=== PATIENT | female | born 1940 | race African-American/Black ===

== ENCOUNTER 2018-04-24 16:42 | Inpatient (IN) ==
[2018-04-24] MEDS ORDERED: MORPHINE 4 MG/1 ML VIAL IV PRN (17:04)
[2018-04-24] MEDS ORDERED: ASPIRIN 325 MG TABLET PO STA (17:04)
[2018-04-24] MEDS ORDERED: ONDANSETRON 4 MG/2 ML VIAL IV PRN (17:04)
[2018-04-24 17:40] LABS: Basophils % 0.5 % (0.0-0.8); Eosinophils # 0.1 10*3/uL (0.0-0.87); Hematocrit 39.4 VOL% (35.7-47.0); Hemoglobin 12.8 GM/DL (12.0-16.0); Immature Granulocytes % 0.2 %; Immature Granulocytes Absolute 0.01 #; Lymphocytes # 1.6 10*3/uL (1.4-4.0); Lymphocytes % 29.4 % (21.3-54.2); Mean Corpuscular HGB Conc 32.5 GM/DL (32-36); Mean Corpuscular Hemoglobin 29 PG (27-34); Monocytes # 0.4 10*3/uL (0.11-0.8); Monocytes % 7.4 % (1.7-12.7); Neutrophils # 3.3 10*3/uL (1.4-7.4); Neutrophils % 60.5 % (38.7-73.9); Platelet Count 211 T/CUMM (130-400); Red Blood Count 4.38 MC/CUMM (3.8-5.5); Red Cell Distribution Width 13.9 % (9.3-17.3); White Blood Count 5.5 T/CUMM (4-12)
[2018-04-24 18:03] LABS: Apearance,Urine CLEAR (Clear); Bilirubin,Urine Negative (Negative); Blood, Urine Negative (Negative); Glucose,Urine (UA) Negative (Negative); Ketones,Urine Negative (Negative); Mucus,Urine Few /LPF (Occasional); Nitrite,Urine Negative (Negative); Protein,Urine Negative; RBC,Urine 7 /HPF (0-4); Squamous Epithelial Cell,Urine Occasional /HPF (0-10); Urine Color Yellow (Yellow); Urine Specific Gravity 1.019 (1.001-1.035); WBC,Urine 1 /HPF (0-6)
[2018-04-24 18:20] LABS: Albumin 3.1 G/DL (3.4-5.0); Bilirubin,Total 1.1 MG/DL (0.2-1.0); Calcium 9.1 MG/DL (8.5-10.1); Osmolality,Calculated 288.7 MOS/KG (273-304); Potassium 3.8 MMOL/L (3.5-5.1)
[2018-04-24 18:22] LABS: PT Patient Result 10.3 SECS; Partial Thromboplastin Time 26.6 SECS (0-40)
[2018-04-24] MEDS ORDERED: BISACODYL 5 MG TABLET PO PRN (18:30)
[2018-04-24] MEDS ORDERED: LACTULOSE 20 GM/30 ML UDCUP PO PRN (18:30)
[2018-04-24] MEDS ORDERED: ASPIRIN 325 MG TABLET PER TUBE STA (18:37)
[2018-04-24 19:36] LABS: Thyroid Stimulating Hormone 0.831 uIU/ml (0.358-3.74)
[2018-04-25 05:34] LABS: Basophils % 0.4 % (0.0-0.8); Eosinophils # 0.1 10*3/uL (0.0-0.87); Eosinophils % 2.5 % (0.00-10.9); Hematocrit 37.8 VOL% (35.7-47.0); Hemoglobin 12.2 GM/DL (12.0-16.0); Immature Granulocytes % 0.2 %; Immature Granulocytes Absolute 0.01 #; Lymphocytes # 1.7 10*3/uL (1.4-4.0); Lymphocytes % 32.8 % (21.3-54.2); Mean Corpuscular HGB Conc 32.3 GM/DL (32-36); Mean Corpuscular Hemoglobin 29 PG (27-34); Mean Corpuscular Volume 89.4 FL (87-102); Mean Platelet Volume 10.3 FL (9.6-12.0); Monocytes # 0.4 10*3/uL (0.11-0.8); Monocytes % 7.4 % (1.7-12.7); Neutrophils # 2.9 10*3/uL (1.4-7.4); Neutrophils % 56.7 % (38.7-73.9); Platelet Count 198 T/CUMM (130-400); Red Blood Count 4.23 MC/CUMM (3.8-5.5); Red Cell Distribution Width 14.2 % (9.3-17.3); White Blood Count 5.2 T/CUMM (4-12)
[2018-04-25 05:56] LABS: Bilirubin,Total 1.4 MG/DL (0.2-1.0); Osmolality,Calculated 288.7 MOS/KG (273-304); Potassium 3.5 MMOL/L (3.5-5.1); Total Protein 6.7 G/DL (6.4-8.3)
[2018-04-25 06:00] LABS: Risk Ratio 1.43; VLDL CHOLESTEROL 8.4 MG/DL
[2018-04-25] MEDS: LANSOPRAZOLE ODT 30 MG TABLET PEG SCH (09:05)
[2018-04-25] MEDS: hydrALAZINE 25 MG TABLET PO SCH ×2 (10:01→21:30)
[2018-04-26] MEDS ORDERED: CARVEDILOL 6.25 MG TABLET PEG SCH (09:00)
[2018-04-26] MEDS: hydrALAZINE 25 MG TABLET PO SCH (09:41)
[2018-04-26] MEDS: LANSOPRAZOLE ODT 30 MG TABLET PEG SCH (09:41)
[2018-04-26] MEDS ORDERED: SODIUM PHOSPHATE ENEMA 133 ML BOTTLE RECTAL ONE (11:00)
[2018-04-26] MEDS ORDERED: LABETALOL 20 MG/4 ML SYRINGE IV ONE (16:47)
[2018-04-26] MEDS ORDERED: LABETALOL 100 MG/20 ML VIAL IV ONE (17:30)
[2018-04-26] MEDS: CARVEDILOL 12.5 MG TABLET PEG SCH (22:03)
[2018-04-26] MEDS: POLYETHYLENE GLYCOL POWDER 17 GM PACK PEG SCH (22:03)
[2018-04-26] MEDS: DOCUSATE SODIUM 100 MG/10 ML UDCUP PEG SCH (22:07)
[2018-04-27 07:03] LABS: Basophils % 0.4 % (0.0-0.8); Eosinophils # 0.2 10*3/uL (0.0-0.87); Eosinophils % 2.1 % (0.00-10.9); Hematocrit 35.6 VOL% (35.7-47.0); Hemoglobin 11.6 GM/DL (12.0-16.0); Immature Granulocytes % 0.4 %; Immature Granulocytes Absolute 0.03 #; Lymphocytes # 1.7 10*3/uL (1.4-4.0); Lymphocytes % 21.3 % (21.3-54.2); Mean Corpuscular HGB Conc 32.6 GM/DL (32-36); Mean Corpuscular Hemoglobin 30 PG (27-34); Mean Corpuscular Volume 91.8 FL (87-102); Mean Platelet Volume 10.6 FL (9.6-12.0); Monocytes # 0.6 10*3/uL (0.11-0.8); Monocytes % 7.1 % (1.7-12.7); Neutrophils # 5.6 10*3/uL (1.4-7.4); Neutrophils % 68.7 % (38.7-73.9); Platelet Count 166 T/CUMM (130-400); Red Blood Count 3.88 MC/CUMM (3.8-5.5); Red Cell Distribution Width 14.2 % (9.3-17.3); White Blood Count 8.1 T/CUMM (4-12)
[2018-04-27 07:18] LABS: Calcium 8.6 MG/DL (8.5-10.1); Osmolality,Calculated 289.6 MOS/KG (273-304); Potassium 3.4 MMOL/L (3.5-5.1)
[2018-04-27] MEDS ORDERED: POTASSIUM CHLORIDE 20 MEQ TABLET PO ONE ×2 (08:18→12:00)
[2018-04-27] MEDS: POLYETHYLENE GLYCOL POWDER 17 GM PACK PEG SCH ×2 (08:52→20:54)
[2018-04-27] MEDS: CARVEDILOL 12.5 MG TABLET PEG SCH ×2 (08:52→20:54)
[2018-04-27] MEDS: LANSOPRAZOLE ODT 30 MG TABLET PEG SCH (08:52)
[2018-04-27] MEDS: DOCUSATE SODIUM 100 MG/10 ML UDCUP PEG SCH ×2 (08:52→20:54)
[2018-04-28 06:30] LABS: Calcium 8.7 MG/DL (8.5-10.1); Osmolality,Calculated 288.7 MOS/KG (273-304); Potassium 3.7 MMOL/L (3.5-5.1)
[2018-04-28] MEDS: POLYETHYLENE GLYCOL POWDER 17 GM PACK PEG SCH ×2 (08:47→21:02)
[2018-04-28] MEDS: LANSOPRAZOLE ODT 30 MG TABLET PEG SCH (08:47)
[2018-04-28] MEDS: CARVEDILOL 12.5 MG TABLET PEG SCH (08:47)
[2018-04-28] MEDS: DOCUSATE SODIUM 100 MG/10 ML UDCUP PEG SCH ×2 (08:47→21:02)
[2018-04-28] MEDS: CARVEDILOL 25 MG TABLET PEG SCH ×2 (09:03→21:03)
[2018-04-29] MEDS ORDERED: ETOMIDATE 20 MG/10 ML VIAL IV ONE (10:00)
[2018-04-29] MEDS ORDERED: PROPOFOL 200 MG/20 ML VIAL IV ONE (10:00)
[2018-04-29] MEDS ORDERED: LIDOCAINE 100 MG/5 ML SYRINGE ONE (10:00)
[2018-04-29] MEDS: DOCUSATE SODIUM 100 MG/10 ML UDCUP PEG SCH ×2 (14:32→21:05)
[2018-04-29] MEDS: POLYETHYLENE GLYCOL POWDER 17 GM PACK PEG SCH ×2 (14:32→21:05)
[2018-04-29] MEDS: CARVEDILOL 25 MG TABLET PEG SCH ×2 (14:33→21:05)
[2018-04-29] MEDS: LANSOPRAZOLE ODT 30 MG TABLET PEG SCH (14:33)
[2018-04-29] MEDS: LISINOPRIL 10 MG TABLET PO SCH (14:33)
[2018-04-30] MEDS: LANSOPRAZOLE ODT 30 MG TABLET PEG SCH (09:29)
[2018-04-30] MEDS: DOCUSATE SODIUM 100 MG/10 ML UDCUP PEG SCH ×2 (09:29→21:14)
[2018-04-30] MEDS: CARVEDILOL 25 MG TABLET PEG SCH ×2 (09:29→21:14)
[2018-04-30] MEDS: LOSARTAN 25 MG TABLET PEG SCH (09:29)
[2018-04-30] MEDS: POLYETHYLENE GLYCOL POWDER 17 GM PACK PEG SCH ×2 (09:29→21:14)
[2018-04-30] MEDS: LISINOPRIL 10 MG TABLET PO SCH (09:30)
[2018-05-01] MEDS: CARVEDILOL 25 MG TABLET PEG SCH (08:52)
[2018-05-01] MEDS: DOCUSATE SODIUM 100 MG/10 ML UDCUP PEG SCH (08:52)
[2018-05-01] MEDS: LANSOPRAZOLE ODT 30 MG TABLET PEG SCH (08:52)
[2018-05-01] MEDS: POLYETHYLENE GLYCOL POWDER 17 GM PACK PEG SCH (08:53)
[2018-05-01] MEDS: LOSARTAN 25 MG TABLET PEG SCH (08:53)
[2018-05-01 11:30] VITALS: BP 138/83
== END 2018-05-01 13:24 | DRG 391 ==
LOC: EDBD → EDUNIT# → N.ED 16:42 → SUATTDRO 18:30 → N.EDINP 18:40 → N.2E 20:13
PROVIDERS: ADMIT Hospitalist; ATTEND Internal Medicine

== ENCOUNTER 2018-09-19 13:07 | Inpatient (IN) ==
[2018-09-19 14:59] LABS: Basophils % 0.3 % (0.0-0.8); Eosinophils # 0.1 10*3/uL (0.0-0.87); Eosinophils % 1.2 % (0.00-10.9); Hematocrit 38.8 VOL% (35.7-47.0); Immature Granulocytes % 0.3 %; Immature Granulocytes Absolute 0.02 #; Lymphocytes # 1.3 10*3/uL (1.4-4.0); Mean Corpuscular HGB Conc 30.9 GM/DL (32-36); Mean Corpuscular Hemoglobin 29 PG (27-34); Monocytes # 0.4 10*3/uL (0.11-0.8); Monocytes % 4.7 % (1.7-12.7); Neutrophils # 6.1 10*3/uL (1.4-7.4); Neutrophils % 77.5 % (38.7-73.9); Platelet Count 132 T/CUMM (130-400); Red Blood Count 4.17 MC/CUMM (3.8-5.5); Red Cell Distribution Width 13.3 % (9.3-17.3); White Blood Count 7.8 T/CUMM (4-12)
[2018-09-19 15:31] LABS: Albumin 2.9 G/DL (3.4-5.0); Bilirubin,Total 0.8 MG/DL (0.2-1.0); Calcium 8.4 MG/DL (8.5-10.1); Osmolality,Calculated 281.3 MOS/KG (273-304); Potassium 4.8 MMOL/L (3.5-5.1); Total Protein 6.4 G/DL (6.4-8.3)
[2018-09-19] MEDS ORDERED: ACETAMINOPHEN 325 MG TABLET PO PRN (15:40)
[2018-09-19] MEDS ORDERED: ONDANSETRON 4 MG/2 ML VIAL IV PRN (15:40)
[2018-09-19 17:51] LABS: Apearance,Urine CLOUDY (Clear); Bacteria,Urine Many /HPF (Few); Bilirubin,Urine Negative (Negative); Blood, Urine Moderate mg/dL (Negative); Glucose,Urine (UA) Negative (Negative); Ketones,Urine Negative (Negative); Mucus,Urine Occasional /LPF (Occasional); Nitrite,Urine Negative (Negative); Protein,Urine Negative; RBC,Urine 10 /HPF (0-4); Squamous Epithelial Cell,Urine Occasional /HPF (0-10); Urine Color Red (Yellow); Urine Specific Gravity 1.005 (1.001-1.035); Urine Urobilinogen < 2.0 EU/DL (0.2-1.0); WBC,Urine 13 /HPF (0-6)
[2018-09-19] MEDS ORDERED: INFLUENZA VIRUS VACCINE 0.5 ML SYRINGE IM ONE (18:41)
[2018-09-19] MEDS: CIPROFLOXACIN INJ 200 MG in PREMIX 1 EACH IV SCH (20:37)
[2018-09-19] MEDS ORDERED: DOCUSATE SODIUM 100 MG CAPSULE PO SCH (21:00)
[2018-09-19] MEDS: POTASSIUM CHLORIDE 20 MEQ PACK PEG SCH (21:59)
[2018-09-19] MEDS: BACLOFEN 10 MG TABLET PEG SCH (21:59)
[2018-09-19] MEDS: CARVEDILOL 25 MG TABLET PEG SCH (22:00)
[2018-09-19] MEDS: levETIRAcetam 500 MG TABLET PEG SCH (22:00)
[2018-09-19] MEDS: traZODone 50 MG TABLET PEG SCH (22:00)
[2018-09-20] MEDS: LEVOTHYROXINE 50 MCG TABLET PEG SCH (05:48)
[2018-09-20] MEDS: CIPROFLOXACIN INJ 200 MG in PREMIX 1 EACH IV SCH ×2 (06:38→18:48)
[2018-09-20] MEDS ORDERED: Cranberry 400 MG PO SCH (08:00)
[2018-09-20] MEDS ORDERED: PANTOPRAZOLE 40 MG TABLET PO SCH (09:00)
[2018-09-20] MEDS: ASPIRIN EC 81 MG TABLET PO SCH (09:30)
[2018-09-20] MEDS: BACLOFEN 10 MG TABLET PEG SCH ×2 (09:31→21:54)
[2018-09-20] MEDS: LANSOPRAZOLE ODT 30 MG TABLET PEG SCH (09:31)
[2018-09-20] MEDS: CARVEDILOL 25 MG TABLET PEG SCH ×2 (09:31→21:54)
[2018-09-20] MEDS: POTASSIUM CHLORIDE 20 MEQ PACK PEG SCH ×2 (09:31→21:54)
[2018-09-20] MEDS: LOSARTAN 25 MG TABLET PEG SCH (09:31)
[2018-09-20] MEDS: levETIRAcetam 500 MG TABLET PEG SCH ×2 (09:31→21:54)
[2018-09-20] MEDS: POLYETHYLENE GLYCOL POWDER 17 GM PACK PEG SCH (09:32)
[2018-09-20] MEDS: DOCUSATE SODIUM 100 MG/10 ML UDCUP PEG SCH (09:32)
[2018-09-20] MEDS: SERTRALINE 25 MG TABLET PEG SCH (09:32)
[2018-09-20] MEDS: traZODone 50 MG TABLET PEG SCH (21:54)
[2018-09-21] MEDS: LEVOTHYROXINE 50 MCG TABLET PEG SCH (06:25)
[2018-09-21] MEDS: CIPROFLOXACIN INJ 200 MG in PREMIX 1 EACH IV SCH ×2 (06:27→18:30)
[2018-09-21] MEDS: ASPIRIN EC 81 MG TABLET PO SCH (11:12)
[2018-09-21] MEDS: levETIRAcetam 500 MG TABLET PEG SCH ×2 (11:13→19:48)
[2018-09-21] MEDS: DOCUSATE SODIUM 100 MG/10 ML UDCUP PEG SCH (11:13)
[2018-09-21] MEDS: LOSARTAN 25 MG TABLET PEG SCH (11:13)
[2018-09-21] MEDS: BACLOFEN 10 MG TABLET PEG SCH ×2 (11:13→19:48)
[2018-09-21] MEDS: POLYETHYLENE GLYCOL POWDER 17 GM PACK PEG SCH (11:13)
[2018-09-21] MEDS: POTASSIUM CHLORIDE 20 MEQ PACK PEG SCH ×2 (11:13→19:48)
[2018-09-21] MEDS: CARVEDILOL 25 MG TABLET PEG SCH ×2 (11:13→19:48)
[2018-09-21] MEDS: LANSOPRAZOLE ODT 30 MG TABLET PEG SCH (11:14)
[2018-09-21] MEDS: SERTRALINE 25 MG TABLET PEG SCH (11:14)
[2018-09-21] MEDS: traZODone 50 MG TABLET PEG SCH (19:48)
[2018-09-22] MEDS: LEVOTHYROXINE 50 MCG TABLET PEG SCH (06:20)
[2018-09-22] MEDS: CIPROFLOXACIN INJ 200 MG in PREMIX 1 EACH IV SCH ×2 (06:20→19:46)
[2018-09-22] MEDS: POTASSIUM CHLORIDE 20 MEQ PACK PEG SCH ×2 (16:49→20:51)
[2018-09-22] MEDS: CARVEDILOL 25 MG TABLET PEG SCH ×2 (16:49→20:52)
[2018-09-22] MEDS: levETIRAcetam 500 MG TABLET PEG SCH ×2 (16:49→20:51)
[2018-09-22] MEDS: ASPIRIN EC 81 MG TABLET PO SCH (16:49)
[2018-09-22] MEDS: BACLOFEN 10 MG TABLET PEG SCH ×2 (16:49→20:52)
[2018-09-22] MEDS: SERTRALINE 25 MG TABLET PEG SCH (16:49)
[2018-09-22] MEDS: LANSOPRAZOLE ODT 30 MG TABLET PEG SCH (16:49)
[2018-09-22] MEDS: LOSARTAN 25 MG TABLET PEG SCH (16:50)
[2018-09-22] MEDS: POLYETHYLENE GLYCOL POWDER 17 GM PACK PEG SCH (19:19)
[2018-09-22] MEDS: DOCUSATE SODIUM 100 MG/10 ML UDCUP PEG SCH (19:19)
[2018-09-22] MEDS: traZODone 50 MG TABLET PEG SCH (20:52)
[2018-09-23] MEDS: LEVOTHYROXINE 50 MCG TABLET PEG SCH (05:45)
[2018-09-23 06:07] LABS: Calcium 8.2 MG/DL (8.5-10.1); Osmolality,Calculated 280.3 MOS/KG (273-304); Prealbumin 17.7 MG/DL (20-40)
[2018-09-23] MEDS: CIPROFLOXACIN INJ 200 MG in PREMIX 1 EACH IV SCH (06:46)
[2018-09-23] MEDS ORDERED: LIDOCAINE 2% TOP JELLY 20 ML VIAL INTRAURETH ONE (08:19)
[2018-09-23] MEDS ORDERED: ETOMIDATE 20 MG/10 ML VIAL IV ONE (11:45)
[2018-09-23] MEDS ORDERED: PROPOFOL 200 MG/20 ML VIAL IV ONE (11:45)
[2018-09-23] MEDS ORDERED: LIDOCAINE 2% 5 ML VIAL ONE (11:45)
[2018-09-23] MEDS: POTASSIUM CHLORIDE 20 MEQ PACK PEG SCH ×2 (14:07→20:43)
[2018-09-23] MEDS: CARVEDILOL 25 MG TABLET PEG SCH ×2 (14:08→20:43)
[2018-09-23] MEDS: BACLOFEN 10 MG TABLET PEG SCH ×2 (14:08→20:44)
[2018-09-23] MEDS: levETIRAcetam 500 MG TABLET PEG SCH ×2 (14:08→20:43)
[2018-09-23] MEDS: SERTRALINE 25 MG TABLET PEG SCH (14:23)
[2018-09-23] MEDS: LANSOPRAZOLE ODT 30 MG TABLET PEG SCH (14:24)
[2018-09-23] MEDS: ASPIRIN EC 81 MG TABLET PO SCH (14:24)
[2018-09-23] MEDS: LOSARTAN 25 MG TABLET PEG SCH (14:24)
[2018-09-23] MEDS: LEVOFLOXACIN INJ 750 MG in PREMIX 1 EACH IV SCH (14:25)
[2018-09-23] MEDS: DOCUSATE SODIUM 100 MG/10 ML UDCUP PEG SCH (14:25)
[2018-09-23] MEDS: POLYETHYLENE GLYCOL POWDER 17 GM PACK PEG SCH (14:26)
[2018-09-23] MEDS: traZODone 50 MG TABLET PEG SCH (20:43)
[2018-09-23] MEDS: DESITIN 4OZ/NYSTATIN 15 GRAM MIXTURE PASTE TOP SCH (22:30)
[2018-09-24] MEDS: LEVOTHYROXINE 50 MCG TABLET PEG SCH (05:30)
[2018-09-24] MEDS: LANSOPRAZOLE ODT 30 MG TABLET PEG SCH (09:18)
[2018-09-24] MEDS: BACLOFEN 10 MG TABLET PEG SCH ×2 (09:18→20:34)
[2018-09-24] MEDS: SERTRALINE 25 MG TABLET PEG SCH (09:18)
[2018-09-24] MEDS: POTASSIUM CHLORIDE 20 MEQ PACK PEG SCH ×2 (09:18→20:34)
[2018-09-24] MEDS: CARVEDILOL 25 MG TABLET PEG SCH ×2 (09:18→20:33)
[2018-09-24] MEDS: LOSARTAN 25 MG TABLET PEG SCH (09:19)
[2018-09-24] MEDS: ASPIRIN EC 81 MG TABLET PO SCH (09:19)
[2018-09-24] MEDS: levETIRAcetam 500 MG TABLET PEG SCH ×2 (09:19→20:34)
[2018-09-24] MEDS: DOCUSATE SODIUM 100 MG/10 ML UDCUP PEG SCH (09:19)
[2018-09-24] MEDS: POLYETHYLENE GLYCOL POWDER 17 GM PACK PEG SCH (09:19)
[2018-09-24] MEDS: DESITIN 4OZ/NYSTATIN 15 GRAM MIXTURE PASTE TOP SCH ×2 (09:33→20:34)
[2018-09-24] MEDS: LEVOFLOXACIN INJ 750 MG in PREMIX 1 EACH IV SCH (09:33)
[2018-09-24] MEDS: traZODone 50 MG TABLET PEG SCH (20:34)
[2018-09-25] MEDS: LEVOTHYROXINE 50 MCG TABLET PEG SCH (06:06)
[2018-09-25] MEDS: LOSARTAN 25 MG TABLET PEG SCH (10:09)
[2018-09-25] MEDS: BACLOFEN 10 MG TABLET PEG SCH (10:09)
[2018-09-25] MEDS: SERTRALINE 25 MG TABLET PEG SCH (10:10)
[2018-09-25] MEDS: CARVEDILOL 25 MG TABLET PEG SCH (10:10)
[2018-09-25] MEDS: levETIRAcetam 500 MG TABLET PEG SCH (10:10)
[2018-09-25] MEDS: ASPIRIN EC 81 MG TABLET PO SCH (10:10)
[2018-09-25] MEDS: LANSOPRAZOLE ODT 30 MG TABLET PEG SCH (10:11)
[2018-09-25] MEDS: POLYETHYLENE GLYCOL POWDER 17 GM PACK PEG SCH (10:11)
[2018-09-25] MEDS: DOCUSATE SODIUM 100 MG/10 ML UDCUP PEG SCH (10:11)
[2018-09-25] MEDS: POTASSIUM CHLORIDE 20 MEQ PACK PEG SCH (10:11)
[2018-09-25] MEDS: LEVOFLOXACIN INJ 750 MG in PREMIX 1 EACH IV SCH (10:19)
[2018-09-25] MEDS: DESITIN 4OZ/NYSTATIN 15 GRAM MIXTURE PASTE TOP SCH (10:20)
[2018-09-25 17:19] VITALS: BP 118/59
== END 2018-09-25 17:26 | disposition home health service (06) | DRG 689 ==
LOC: EDUNIT# → EDBD → N.ED 13:07 → N.EDINP 15:39 → N.4E 18:24
PROVIDERS: ADMIT Family Medicine; ATTEND Family Medicine
PROC: EGDWPEG (ICD-10-PCS; 2018-09-23 09:35)